=== PATIENT | female | born 2000 | race African-American/Black ===

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

== ENCOUNTER 2019-04-07 15:19 | Emergency (ER) | payer SELFPAY ==
[~2019-04-07] VITALS: Ht 170.2 cm; Wt 68.0 kg
[2019-04-07 16:26] VITALS: BP 125/76
== END 2019-04-07 16:28 | disposition home or self-care (01) ==
LOC: ER 15:19
DX: S60.561A Insect bite (nonvenomous) of right hand, initial encounter (principal); S50.861A Insect bite (nonvenomous) of right forearm, initial encounter; W57.XXXA Bitten or stung by nonvenomous insect and other nonvenomous arthropods, initial encounter; Y93.89 Activity, other specified; Y92.89 Other specified places as the place of occurrence of the external cause; Y99.8 Other external cause status
CPT/HCPCS: 99283